=== PATIENT | male | born 1975 | race Two or more races ===

== ENCOUNTER 2018-12-25 16:01 | Emergency (ER) | payer OTHER ==
[~2018-12-25] VITALS: Ht 170.2 cm; Wt 93.4 kg
[2018-12-25 16:28] VITALS: BP 143/78
[2018-12-25] MEDS: KETOROLAC TROMETH 60MG/2ML VIAL IM ONE (16:45)
== END 2018-12-25 17:33 | disposition home or self-care (01) ==
LOC: ER 16:01
DX: G89.29 Other chronic pain (principal); M54.5 Low back pain
CPT/HCPCS: 96372; 99283; J1885

== ENCOUNTER 2019-08-21 08:22 | Emergency (ER) | payer OTHER ==
[~2019-08-21] VITALS: Ht 170.2 cm; Wt 95.3 kg
[2019-08-21 08:30] VITALS: BP 176/98
[2019-08-21] MEDS ORDERED: KETOROLAC TROMETH 60MG/2ML VIAL IM ONE (10:00)
== END 2019-08-21 10:23 | disposition home or self-care (01) ==
LOC: ER 08:25
DX: G89.29 Other chronic pain (principal); M54.5 Low back pain
CPT/HCPCS: 96372; 99283; J1885

== ENCOUNTER 2019-10-06 11:00 | Emergency (ER) | payer OTHER ==
[~2019-10-06] VITALS: Ht 170.2 cm; Wt 97.5 kg
[2019-10-06 12:39] VITALS: BP 153/92
[2019-10-06] MEDS ORDERED: ACETAMINOPHEN/CODEINE#3 (300/30mg) TAB PO ONE (13:45)
== END 2019-10-06 14:25 | disposition home or self-care (01) ==
LOC: ER 11:00
DX: M54.5 Low back pain (principal); R51 Headache
CPT/HCPCS: 72070; 72100

== ENCOUNTER 2020-05-28 11:01 | Emergency (ER) | payer OTHER ==
[~2020-05-28] VITALS: Ht 170.2 cm; Wt 99.8 kg
[2020-05-28 11:33] VITALS: BP 140/86
[2020-05-28] MEDS ORDERED: KETOROLAC TROMETH 60MG/2ML VIAL IM ONE (12:30)
== END 2020-05-28 13:07 | disposition home or self-care (01) ==
LOC: ER 11:01
DX: M54.5 Low back pain (principal); G89.29 Other chronic pain
CPT/HCPCS: 96372; 99283; J1885

== ENCOUNTER 2021-03-17 23:12 | Emergency (ER) | payer OTHER ==
[~2021-03-17] VITALS: Ht 170.2 cm; Wt 90.7 kg
[2021-03-18] MEDS ORDERED: KETOROLAC TROMETH 60MG/2ML VIAL IM ONE (01:00)
[2021-03-18] MEDS ORDERED: METHOCARBAMOL 500 MG TAB PO ONE (01:15)
[2021-03-18] MEDS ORDERED: ALPRAZolam 0.25 MG TAB PO ONE (01:15)
[2021-03-18 03:40] VITALS: BP 177/98
== END 2021-03-18 02:37 | disposition home or self-care (01) ==
LOC: ER 23:12
DX: M54.5 Low back pain (principal); G89.29 Other chronic pain; M79.10 Myalgia, unspecified site; M54.16 Radiculopathy, lumbar region; E66.9 Obesity, unspecified; Z68.31 Body mass index [BMI] 31.0-31.9, adult
CPT/HCPCS: 96372; 99283; J1885

== ENCOUNTER 2021-12-04 21:50 | Emergency (ER) | payer OTHER ==
[~2021-12-04] VITALS: Ht 170.2 cm; Wt 97.5 kg
[2021-12-04 21:53] VITALS: BP 158/87
[2021-12-04] MEDS ORDERED: KETOROLAC TROMETH 30 MG/ML 1ML VIAL IM ONE (22:15)
[2021-12-05] MEDS ORDERED: HYDROcodone-ACET 5/325MG TAB PO ONE (02:00)
== END 2021-12-05 02:01 | disposition home or self-care (01) ==
LOC: ER 21:53
DX: G89.29 Other chronic pain (principal); M54.50 Low back pain, unspecified
CPT/HCPCS: 72100; 96372; 99283; J1885

== ENCOUNTER 2022-12-01 19:49 | Inpatient (IN) | payer MEDICAID ==
[~2022-12-01] VITALS: Ht 170.2 cm; Wt 120.0 kg
[2022-12-01 20:52] LABS: Basophils # (auto) 0.1 10 ^3/uL (0-0.2); Basophils % (auto) 0.5 % (0.0-2.0); Eosinophils # (auto) 0.1 10 ^3/uL (0-0.8); Hematocrit 46.1 % (41.0-53.0); Hemoglobin 15.6 g/dL (13.5-17.5); Lymphocytes % (auto) 37.8 % (10.0-50.0); Mean Corpuscular Hemoglobin 29.8 pg (28.0-32.0); Mean Corpuscular Hgb Conc. 33.8 g/dL (32.0-36.0); Mean Corpuscular Volume 88.2 fL (80.0-100.0); Monocytes # (auto) 0.9 10 ^3/uL (0-1.3); Monocytes % (auto) 8.5 % (0.0-12.0); Neutrophils # (auto) 5.5 10 ^3/uL (1.6-8.6); Neutrophils % (auto) 52.2 % (37.0-80.0); Red Blood Cells 5.22 10^6/uL (4.5-5.90); White Blood Cell 10.6 10^3/uL (4.4-10.8)
[2022-12-01 21:20] LABS: Albumin 3.8 g/dL (3.4-5.0); Calcium 8.8 mg/dL (8.5-10.1); Potassium 3.6 mmol/L (3.5-5.1)
[2022-12-01 21:23] LABS: BUN/Creatinine Ratio 18.6; Bilirubin, Total 0.3 mg/dL (0.2-1.0); Total Protein 7.7 g/dL (6.4-8.2)
[2022-12-01] MEDS ORDERED: cefTRIAXone 1GM/50ML D5W 50 ML IV ONE (22:30)
[2022-12-01] MEDS ORDERED: LISINOPRIL 10 MG TAB PO ONE (22:45)
[2022-12-01] MEDS ORDERED: DEXTROSE (50%) 50ML SYRG IV PRN (23:15)
[2022-12-01] MEDS: SODIUM CHLORIDE 0.9% 1,000 ML IV SCH (23:15)
[2022-12-01] MEDS ORDERED: hydrALAZINE HCL 20 MG/ML VL IV PRN (23:15)
[2022-12-01] MEDS ORDERED: HYDROcodone-ACET 5/325MG TAB PO PRN (23:15)
[2022-12-01] MEDS ORDERED: DOCUSATE SOD 100 MG CAP PO PRN (23:15)
[2022-12-01] MEDS ORDERED: ONDANSETRON HCL 4 MG/2 ML VIAL IV PRN (23:15)
[2022-12-01] MEDS ORDERED: ACETAMINOPHEN 325 MG TAB PO PRN (23:15)
[2022-12-02] MEDS ORDERED: MORPHINE SULFATE INJ 2 MG/ml SYRG IV PRN (01:30)
[2022-12-02] MEDS ORDERED: NITROGLYCERIN 0.4 MG SL TAB SL PRN (01:30)
[2022-12-02] MEDS: SODIUM CHLORIDE 0.9% 1,000 ML IV SCH ×3 (04:03→22:00)
[2022-12-02 04:53] LABS: Basophils # (auto) 0 10 ^3/uL (0-0.2); Basophils % (auto) 0.4 % (0.0-2.0); Eosinophils # (auto) 0.1 10 ^3/uL (0-0.8); Eosinophils % (auto) 1.3 % (0.0-7.0); Hematocrit 41.8 % (41.0-53.0); Hemoglobin 14.4 g/dL (13.5-17.5); Lymphocytes # (auto) 3.6 10 ^3/uL (0.4-5.4); Lymphocytes % (auto) 34.9 % (10.0-50.0); Mean Corpuscular Hemoglobin 30.3 pg (28.0-32.0); Mean Corpuscular Hgb Conc. 34.5 g/dL (32.0-36.0); Mean Corpuscular Volume 87.7 fL (80.0-100.0); Monocytes # (auto) 0.8 10 ^3/uL (0-1.3); Monocytes % (auto) 8.2 % (0.0-12.0); Neutrophils # (auto) 5.7 10 ^3/uL (1.6-8.6); Neutrophils % (auto) 55.2 % (37.0-80.0); Nucleated Red Blood Cells % 0.1 %; Red Blood Cells 4.77 10^6/uL (4.5-5.90); Red Cell Distribution Width 13.1 % (11.8-14.3); White Blood Cell 10.3 10^3/uL (4.4-10.8)
[2022-12-02 05:35] LABS: Albumin 3.4 g/dL (3.4-5.0); BUN/Creatinine Ratio 16.7; Calcium 8.6 mg/dL (8.5-10.1); Potassium 3.7 mmol/L (3.5-5.1)
[2022-12-02 06:08] LABS: Bilirubin, Total 0.2 mg/dL (0.2-1.0)
[2022-12-02] MEDS ORDERED: VANCOMYCIN PER PHARMACY 0 MG IV SCH (06:15)
[2022-12-02] MEDS ORDERED: VANCOMYCIN 1GM/250ML 250 ML IV ONE (06:30)
[2022-12-02] MEDS: ACCU-CHEK COMFORT CURVE STRIP VI SCH ×4 (07:05→22:32)
[2022-12-02] MEDS: InsuLIN REG 1unit/0.01ml Soln (100units/ml) SC SCH ×4 (07:12→22:38)
[2022-12-02] MEDS: ZINC SULFATE 220mg CAP or TAB PO SCH (10:54)
[2022-12-02] MEDS: amLODIPine BESYLATE 5 MG TAB PO SCH (10:55)
[2022-12-02] MEDS: cefTRIAXone 1GM/50ML D5W 50 ML IV SCH ×2 (10:55→11:31)
[2022-12-02] MEDS: ASCORBIC ACID 500 MG TAB PO SCH ×2 (10:56→22:32)
[2022-12-02] MEDS: ENOXAPARIN SOD 40 MG/0.4 ML SYRINGE SC SCH (10:57)
[2022-12-02] MEDS: INSULIN LANTUS (GLARGINE) 1 /0.01ml (100units/ml) SC SCH (12:03)
[2022-12-02 14:14] LABS: INR 0.97 (0.9-1.15)
[2022-12-02] MEDS: VANCOMYCIN 1GM/250ML 250 ML IV SCH ×2 (15:43→22:49)
[2022-12-02 21:53] VITALS: BP 129/68
[2022-12-02 22:00] VITALS: BP_SYST 129; BP_SYST 132; BP_DIAS 68; BP_DIAS 81
[2022-12-03 05:00] VITALS: BP 95/55
[2022-12-03] MEDS: ACCU-CHEK COMFORT CURVE STRIP VI SCH ×4 (06:06→22:10)
[2022-12-03 06:23] LABS: Basophils # (auto) 0 10 ^3/uL (0-0.2); Basophils % (auto) 0.3 % (0.0-2.0); Eosinophils # (auto) 0.2 10 ^3/uL (0-0.8); Eosinophils % (auto) 1.5 % (0.0-7.0); Hematocrit 42.1 % (41.0-53.0); Hemoglobin 14.2 g/dL (13.5-17.5); Lymphocytes # (auto) 3.9 10 ^3/uL (0.4-5.4); Mean Corpuscular Hemoglobin 29.7 pg (28.0-32.0); Mean Corpuscular Hgb Conc. 33.7 g/dL (32.0-36.0); Mean Corpuscular Volume 88.2 fL (80.0-100.0); Monocytes % (auto) 9.5 % (0.0-12.0); Neutrophils # (auto) 5.2 10 ^3/uL (1.6-8.6); Neutrophils % (auto) 50.7 % (37.0-80.0); Nucleated Red Blood Cells % 0.2 %; Red Blood Cells 4.77 10^6/uL (4.5-5.90); Red Cell Distribution Width 13.3 % (11.8-14.3); White Blood Cell 10.3 10^3/uL (4.4-10.8)
[2022-12-03] MEDS: InsuLIN REG 1unit/0.01ml Soln (100units/ml) SC SCH ×4 (06:25→22:19)
[2022-12-03 06:41] LABS: Potassium 4.5 mmol/L (3.5-5.1)
[2022-12-03 06:56] LABS: Albumin 3.1 g/dL (3.4-5.0); Bilirubin, Total 0.4 mg/dL (0.2-1.0); Calcium 8.3 mg/dL (8.5-10.1); Total Protein 6.2 g/dL (6.4-8.2)
[2022-12-03] MEDS: VANCOMYCIN 1GM/250ML 250 ML IV SCH ×3 (07:50→22:31)
[2022-12-03 08:00] VITALS: BP 100/64
[2022-12-03] MEDS: SODIUM CHLORIDE 0.9% 1,000 ML IV SCH ×2 (08:00→17:28)
[2022-12-03] MEDS: ZINC SULFATE 220mg CAP or TAB PO SCH (10:39)
[2022-12-03] MEDS: ASCORBIC ACID 500 MG TAB PO SCH ×2 (10:39→22:07)
[2022-12-03] MEDS: ENOXAPARIN SOD 40 MG/0.4 ML SYRINGE SC SCH (10:40)
[2022-12-03] MEDS: amLODIPine BESYLATE 5 MG TAB PO SCH (10:42)
[2022-12-03] MEDS: INSULIN LANTUS (GLARGINE) 1 /0.01ml (100units/ml) SC SCH (10:51)
[2022-12-03] MEDS ORDERED: cefTRIAXone 1GM/50ML D5W 50 ML IV ONE (12:00)
[2022-12-03 12:05] VITALS: BP 119/72
[2022-12-03 16:00] VITALS: BP 113/64
[2022-12-03 20:05] VITALS: BP 115/69
[2022-12-03 22:00] VITALS: BP 115/69
[2022-12-03] MEDS: DAKINS QUARTER STR 0.125% (NaHypochlorite) 473 ML TOPICAL SOL TOP SCH (22:09)
[2022-12-04] MEDS: SODIUM CHLORIDE 0.9% 1,000 ML IV SCH (04:00)
[2022-12-04 05:00] VITALS: BP 119/72
[2022-12-04] MEDS: ACCU-CHEK COMFORT CURVE STRIP VI SCH ×2 (06:26→12:15)
[2022-12-04] MEDS: InsuLIN REG 1unit/0.01ml Soln (100units/ml) SC SCH ×2 (06:27→12:16)
[2022-12-04] MEDS: VANCOMYCIN 1GM/250ML 250 ML IV SCH ×2 (06:28→15:00)
[2022-12-04 06:48] LABS: Urine Bacteria NONE SEEN /hpf (None Seen); Urine Blood Negative /uL (Negative); Urine Specific Gravity 1.013 (1.001-1.035); Urine WBC 1 /hpf (0 - 3)
[2022-12-04 08:53] VITALS: BP 104/66
[2022-12-04] MEDS: cefTRIAXone 1GM/50ML D5W 50 ML IV SCH (09:29)
[2022-12-04] MEDS: ENOXAPARIN SOD 40 MG/0.4 ML SYRINGE SC SCH (09:29)
[2022-12-04] MEDS: ASCORBIC ACID 500 MG TAB PO SCH (09:33)
[2022-12-04] MEDS: amLODIPine BESYLATE 5 MG TAB PO SCH (09:33)
[2022-12-04] MEDS: ZINC SULFATE 220mg CAP or TAB PO SCH (09:36)
[2022-12-04] MEDS: DAKINS QUARTER STR 0.125% (NaHypochlorite) 473 ML TOPICAL SOL TOP SCH (09:36)
[2022-12-04] MEDS: INSULIN LANTUS (GLARGINE) 1 /0.01ml (100units/ml) SC SCH (09:41)
[2022-12-04] MEDS ORDERED: metFORMIN HYDROCHLORIDE 500 MG TAB PO ONE (10:00)
[2022-12-04] MEDS ORDERED: LISI20TA28 PO (10:06)
[2022-12-04] MEDS ORDERED: METF-370 PO (10:06)
[2022-12-04] MEDS ORDERED: BLOO1KIT60 XX (10:08)
[2022-12-04] MEDS ORDERED: CLIN150C PO (10:11)
[2022-12-04 13:00] VITALS: BP 125/74
[2022-12-04 13:24] VITALS: BP 119/79
[2022-12-04 16:38] VITALS: BP 140/77
[2022-12-04] MEDS ORDERED: metFORMIN HYDROCHLORIDE 500 MG TAB PO SCH (18:00)
== END 2022-12-04 16:00 | disposition home or self-care (01) | DRG 380 ==
LOC: ER 19:49 → OVERFLOW 12-02 01:19 → WEST WING 12-02 21:00
PROVIDERS: ADMIT Nurse Practitioner Family; ATTEND Internal Medicine Geriatric Medicine
DX: E11.621 Type 2 diabetes mellitus with foot ulcer (principal); L97.429 Non-pressure chronic ulcer of left heel and midfoot with unspecified severity; E87.1 Hypo-osmolality and hyponatremia; M60.9 Myositis, unspecified; L03.116 Cellulitis of left lower limb; I10 Essential (primary) hypertension; E66.9 Obesity, unspecified; R31.9 Hematuria, unspecified; L91.0 Hypertrophic scar; Z20.822 Contact with and (suspected) exposure to COVID-19; Z79.84 Long term (current) use of oral hypoglycemic drugs; Z83.3 Family history of diabetes mellitus; Z68.41 Body mass index [BMI] 40.0-44.9, adult
CPT/HCPCS: 36415; 71045; 73700; 73718; 80053; 80202; 81001; 82962; 83036; 85025; 85610; 85652; 87077; 87186; 87205; 87426; 96365; G0378; J0696; J1815

== ENCOUNTER 2024-04-26 22:38 | Inpatient (IN) | payer MEDICAID ==
[~2024-04-26] VITALS: Ht 167.6 cm; Wt 77.3 kg
[~2024-04-26 22:38] MED LIST: BLOO1KIT60 XX; CLIN150C PO; LISI20TA56 PO; METF-370 PO
[2024-04-27 04:36] VITALS: PULSE 83; RESP 22; O2SAT 99
[2024-04-27] MEDS: HYDROmorphone HCL 2 MG/ML VL/or syr IV ONE ×2 (04:47→10:23)
[2024-04-27] MEDS: ONDANSETRON HCL 4 MG/2 ML VIAL IV ONE (04:48)
[2024-04-27] MEDS: VANCOMYCIN 1GM/200ML 200 ML IV ONE (06:45)
[2024-04-27] MEDS: PIPERACILLIN-TAZOB 3.375GM 100 ML IV ONE ×2 (06:45→10:30)
[2024-04-27] MEDS: SODIUM CHLORIDE 0.9% 1,000 ML IV ONE (06:45)
[2024-04-27 06:53] LABS: Alanine Aminotransferase 10 U/L (7-40); Albumin 4.1 g/dL (3.2-4.8); Alkaline Phosphatase 87 U/L (46-116); Anion Gap 9 (5-15); Aspartate Aminotransferase 9 U/L (13-40); BUN/Creatinine Ratio 7.1 (10.0-20.0); Bilirubin, Total 0.4 mg/dL (0.2-1.0); Blood Urea Nitrogen 7 mg/dL (9-23); Calcium 12.5 mg/dL (8.7-10.4); Carbon Dioxide 23 mmol/L (20-30); Chloride 104 mmol/L (98-107); Glucose 174 mg/dL (74-106); Potassium 3.4 mmol/L (3.5-5.1); Sodium 136 mmol/L (136-145)
[2024-04-27 06:55] LABS: Basophils % (auto) 0.3 % (0.0-2.0); Eosinophils # (auto) 0.2 10 ^3/uL (0-0.8); Lymphocytes # (auto) 2.8 10 ^3/uL (0.4-5.4)
[2024-04-27 06:58] LABS: Basophils # (auto) 0.1 10 ^3/uL (0-0.2); Eosinophils % (auto) 1.1 % (0.0-7.0); Hematocrit 26.7 % (41.0-53.0); Hemoglobin 8.8 g/dL (13.5-17.5); Lymphocytes % (auto) 14.4 % (10.0-50.0); Mean Corpuscular Hemoglobin 25.1 pg (28.0-32.0); Mean Corpuscular Hgb Conc. 32.9 g/dL (32.0-36.0); Mean Corpuscular Volume 76.2 fL (80.0-100.0); Monocytes # (auto) 1.4 10 ^3/uL (0-1.3); Monocytes % (auto) 7.4 % (0.0-12.0); Neutrophils # (auto) 14.6 10 ^3/uL (1.6-8.6); Neutrophils % (auto) 76.8 % (37.0-80.0); Red Blood Cells 3.51 10^6/uL (4.5-5.90); Red Cell Distribution Width 16.5 % (11.8-14.3); White Blood Cell 19.1 10^3/uL (4.4-10.8)
[2024-04-27] MEDS: MORPHINE SULFATE 4 MG/ML SYR/VIAL IV ONE (07:39)
[2024-04-27 08:00] VITALS: PULSE 83; RESP 22; O2SAT 98
[2024-04-27] MEDS ORDERED: DEXTROSE (50%) 50ML SYRG IV PRN (10:30)
[2024-04-27] MEDS ORDERED: NITROGLYCERIN 0.4 MG SL TAB SL PRN (10:30)
[2024-04-27] MEDS ORDERED: ONDANSETRON HCL 4 MG/2 ML VIAL IV PRN (10:30)
[2024-04-27] MEDS: ACCU-CHEK COMFORT CURVE STRIP VI SCH (11:30)
[2024-04-27] MEDS: InsuLIN REG 1unit/0.01ml Soln (100units/ml) SC SCH ×2 (14:31→23:07)
[2024-04-27] MEDS: SODIUM CHLORIDE 0.9% 1,000 ML IV SCH ×2 (14:31→20:30)
[2024-04-27] MEDS ORDERED: GADOTERATE MEG 10 MMOL/20ml INJ (0.5MMOL/ml) IV ONE (14:36)
[2024-04-27] MEDS: PIPERACILLIN-TAZOB 3.375GM 100 ML IV SCH (14:44)
[2024-04-27] MEDS: MORPHINE SULFATE INJ 2 MG/ml SYRG IV PRN (15:04)
[2024-04-27 17:57] VITALS: BP 159/77; PULSE 87; RESP 16; TEMP 97.6; O2SAT 99
[2024-04-27] MEDS ORDERED: HYDR1TAB97 (18:12)
[2024-04-27] MEDS ORDERED: DOXY100C4 (18:12)
[2024-04-27] MEDS ORDERED: CEFD300C2 (18:12)
[2024-04-27 20:00] VITALS: PULSE 92
[2024-04-27 21:00] VITALS: BP 152/81; PULSE 92; RESP 20; TEMP 99.3; O2SAT 97
[2024-04-28] VITALS (8 sets, daily range): BP systolic 129–159; BP diastolic 65–77; PULSE 76–95; RESP 17–19; TEMP 98–98.5; O2SAT 94–96
[2024-04-28 06:08] LABS: Basophils % (auto) 0.2 % (0.0-2.0); Eosinophils # (auto) 0.2 10 ^3/uL (0-0.8); Eosinophils % (auto) 0.8 % (0.0-7.0)
[2024-04-28 06:10] LABS: Basophils # (auto) 0 10 ^3/uL (0-0.2); Hematocrit 26.6 % (41.0-53.0); Hemoglobin 8.6 g/dL (13.5-17.5); Lymphocytes # (auto) 2.9 10 ^3/uL (0.4-5.4); Lymphocytes % (auto) 13.6 % (10.0-50.0); Mean Corpuscular Hemoglobin 24.3 pg (28.0-32.0); Mean Corpuscular Hgb Conc. 32.5 g/dL (32.0-36.0); Mean Corpuscular Volume 74.7 fL (80.0-100.0); Monocytes # (auto) 1.5 10 ^3/uL (0-1.3); Monocytes % (auto) 7.1 % (0.0-12.0); Neutrophils # (auto) 16.7 10 ^3/uL (1.6-8.6); Neutrophils % (auto) 78.3 % (37.0-80.0); Red Blood Cells 3.56 10^6/uL (4.5-5.90); White Blood Cell 21.3 10^3/uL (4.4-10.8)
[2024-04-28 06:16] LABS: Albumin 3.8 g/dL (3.2-4.8); Alkaline Phosphatase 82 U/L (46-116); Anion Gap 8 (5-15); BUN/Creatinine Ratio 8.2 (10.0-20.0); Blood Urea Nitrogen 8 mg/dL (9-23); Calcium 12.7 mg/dL (8.7-10.4); Carbon Dioxide 25 mmol/L (20-30); Chloride 103 mmol/L (98-107); Glucose 148 mg/dL (74-106); Potassium 3.5 mmol/L (3.5-5.1); Sodium 136 mmol/L (136-145)
[2024-04-28 06:17] LABS: Aspartate Aminotransferase 11 U/L (13-40); Bilirubin, Total 0.6 mg/dL (0.2-1.0)
[2024-04-28 06:24] LABS: Alanine Aminotransferase 9 U/L (7-40)
[2024-04-28] MEDS: ENOXAPARIN SOD 40 MG/0.4 ML SYRINGE SC SCH (08:37)
[2024-04-29] VITALS (8 sets, daily range): BP systolic 104–159; BP diastolic 69–77; PULSE 84–97; RESP 16–20; TEMP 98.4–99.1; O2SAT 92–98
[2024-04-29] MEDS: DOCUSATE SOD 100 MG CAP PO PRN (08:53)
[2024-04-29] MEDS ORDERED: VANCOMYCIN PER PHARMACY 0 MG IV SCH (09:00)
[2024-04-29] MEDS: VANCOMYCIN 1GM/200ML 200 ML IV ONE (11:16)
[2024-04-29] MEDS: HYDROmorphone HCL 2 MG/ML VL/or syr IV PRN (11:17)
[2024-04-29] MEDS: VANCOMYCIN 1GM/200ML 200 ML IV SCH (18:55)
[2024-04-29] MEDS: TEMAZEPAM 15 MG CAP PO PRN (21:32)
[2024-04-30 05:00] VITALS: BP 130/68; PULSE 93; RESP 20; TEMP 98.7; O2SAT 98
[2024-04-30 08:00] VITALS: RESP 20; O2SAT 98
[2024-04-30 09:00] VITALS: BP 148/79; PULSE 93; RESP 18; TEMP 97.5; O2SAT 98
[2024-04-30 10:52] LABS: Basophils # (auto) 0 10 ^3/uL (0-0.2); Basophils % (auto) 0.2 % (0.0-2.0); Eosinophils # (auto) 0.1 10 ^3/uL (0-0.8); Lymphocytes # (auto) 2.8 10 ^3/uL (0.4-5.4); Mean Corpuscular Hemoglobin 24.4 pg (28.0-32.0); Neutrophils # (auto) 16.3 10 ^3/uL (1.6-8.6); Neutrophils % (auto) 77.4 % (37.0-80.0); White Blood Cell 21.1 10^3/uL (4.4-10.8)
[2024-04-30 10:54] LABS: Eosinophils % (auto) 0.7 % (0.0-7.0); Lymphocytes % (auto) 13.2 % (10.0-50.0); Mean Corpuscular Hgb Conc. 32.1 g/dL (32.0-36.0); Monocytes # (auto) 1.8 10 ^3/uL (0-1.3); Monocytes % (auto) 8.5 % (0.0-12.0); Red Blood Cells 3.68 10^6/uL (4.5-5.90); Red Cell Distribution Width 16.5 % (11.8-14.3)
[2024-04-30 11:20] LABS: Alanine Aminotransferase 12 U/L (7-40); Albumin 4.2 g/dL (3.2-4.8); Alkaline Phosphatase 90 U/L (46-116); Anion Gap 10 (5-15); Aspartate Aminotransferase 17 U/L (13-40); BUN/Creatinine Ratio 11.9 (10.0-20.0); Bilirubin, Total 0.5 mg/dL (0.2-1.0); Blood Urea Nitrogen 13 mg/dL (9-23); Carbon Dioxide 23 mmol/L (20-30); Chloride 101 mmol/L (98-107); Glucose 132 mg/dL (74-106); Potassium 3.8 mmol/L (3.5-5.1); Sodium 134 mmol/L (136-145); Total Protein 7.2 g/dL (5.7-8.2)
[2024-04-30 11:25] LABS: Calcium 13.4 mg/dL (8.7-10.4)
[2024-04-30 13:00] VITALS: BP 121/74; PULSE 92; RESP 16; TEMP 98.2; O2SAT 97
[2024-04-30 17:00] VITALS: BP 127/74; PULSE 88; RESP 18; TEMP 98; O2SAT 94
[2024-04-30] MEDS: VANCOMYCIN 1GM/200ML 200 ML IV SCH (19:02)
[2024-04-30 21:00] VITALS: BP 127/63; PULSE 90; RESP 17; TEMP 99.1; O2SAT 95
[2024-05-01] VITALS (7 sets, daily range): BP systolic 97–157; BP diastolic 50–77; PULSE 69–96; RESP 16–21; TEMP 98–100.1; O2SAT 94–98
[2024-05-01] MEDS: MORPHINE SULFATE INJ 2 MG/ml SYRG IV PRN (11:23)
[2024-05-01] MEDS: HYDROcodone-ACET 10/325MG TAB PO PRN (20:43)
[2024-05-02 01:00] VITALS: BP 146/74; PULSE 81; RESP 18; TEMP 97.9; O2SAT 97
[2024-05-02 04:40] LABS: COVID19 ANTIGEN SOFIA FIA NEGATIVE (NEGATIVE)
[2024-05-02 04:57] VITALS: BP 156/73; PULSE 87; RESP 19; TEMP 98; O2SAT 96
[2024-05-02 07:47] VITALS: BP 143/63; PULSE 88; RESP 20; TEMP 98.4; O2SAT 96
[2024-05-02 09:26] LABS: Basophils # (auto) 0.1 10 ^3/uL (0-0.2); Basophils % (auto) 0.3 % (0.0-2.0); Hemoglobin 8.2 g/dL (13.5-17.5); Lymphocytes # (auto) 2.5 10 ^3/uL (0.4-5.4); Neutrophils # (auto) 15.1 10 ^3/uL (1.6-8.6); White Blood Cell 19.4 10^3/uL (4.4-10.8)
[2024-05-02 09:27] LABS: Eosinophils # (auto) 0.3 10 ^3/uL (0-0.8); Eosinophils % (auto) 1.4 % (0.0-7.0); Lymphocytes % (auto) 12.8 % (10.0-50.0); Mean Corpuscular Hemoglobin 24.6 pg (28.0-32.0); Mean Corpuscular Hgb Conc. 32.7 g/dL (32.0-36.0); Mean Corpuscular Volume 75.4 fL (80.0-100.0); Monocytes # (auto) 1.4 10 ^3/uL (0-1.3); Monocytes % (auto) 7.4 % (0.0-12.0); Neutrophils % (auto) 78.1 % (37.0-80.0); Red Blood Cells 3.32 10^6/uL (4.5-5.90); Red Cell Distribution Width 16.8 % (11.8-14.3)
[2024-05-02 09:35] LABS: Alanine Aminotransferase 12 U/L (7-40); Albumin 3.9 g/dL (3.2-4.8); Alkaline Phosphatase 93 U/L (46-116); Anion Gap 9 (5-15); Aspartate Aminotransferase 13 U/L (13-40); BUN/Creatinine Ratio 13.6 (10.0-20.0); Bilirubin, Total 0.3 mg/dL (0.2-1.0); Blood Urea Nitrogen 12 mg/dL (9-23); Carbon Dioxide 22 mmol/L (20-30); Chloride 103 mmol/L (98-107); Glucose 127 mg/dL (74-106); Potassium 3.4 mmol/L (3.5-5.1); Sodium 134 mmol/L (136-145)
[2024-05-02 09:36] LABS: Total Protein 6.8 g/dL (5.7-8.2)
[2024-05-02 09:52] LABS: Calcium 13.2 mg/dL (8.7-10.4)
[2024-05-02 12:31] VITALS: BP 143/68; PULSE 81; RESP 16; TEMP 98.5; O2SAT 96
[2024-05-02 16:33] VITALS: BP 143/80; PULSE 64; RESP 20; TEMP 98.7; O2SAT 95
[2024-05-02 21:00] VITALS: BP 132/73; PULSE 89; RESP 18; TEMP 98; O2SAT 96
[2024-05-02] MEDS: VANCOMYCIN 1GM/200ML 200 ML IV SCH (21:56)
== END 2024-05-02 22:34 | disposition short-term general hospital (02) | DRG 720 ==
LOC: EDBD 22:38 → ER 22:38 → OVERFLOW 04-27 10:25 → EAST 04-27 15:20
PROVIDERS: ADMIT Nurse Practitioner Family; ATTEND Family Medicine
DX: A41.9 Sepsis, unspecified organism (principal); M86.152 Other acute osteomyelitis, left femur; D64.9 Anemia, unspecified; E11.65 Type 2 diabetes mellitus with hyperglycemia; D75.839 Thrombocytosis, unspecified; L03.116 Cellulitis of left lower limb; Z20.822 Contact with and (suspected) exposure to COVID-19; E83.52 Hypercalcemia; E87.6 Hypokalemia; Z83.3 Family history of diabetes mellitus; Z89.512 Acquired absence of left leg below knee; Z79.4 Long term (current) use of insulin; Z79.899 Other long term (current) drug therapy; Z79.84 Long term (current) use of oral hypoglycemic drugs
CPT/HCPCS: 36415; 73700; 73722; 80053; 80202; 82565; 82962; 85025; 87040; 87426; 96365; 96366; G0378; J1815; J2405; J2543

== ENCOUNTER 2024-05-08 16:54 | Inpatient (IN) | payer MEDICAID ==
[~2024-05-08] VITALS: Ht 165.1 cm; Wt 77.6 kg
[~2024-05-08 16:54] MED LIST changes: -BLOO1KIT60 XX; +CEFD300C2; -CLIN150C PO; +DOXY100C4; +HYDR1TAB97; -LISI20TA56 PO
[2024-05-09] VITALS (9 sets, daily range): BP systolic 112–162; BP diastolic 40–79; PULSE 74–87; RESP 16–18; TEMP 97.4–98.1; O2SAT 97–99
[2024-05-09 02:07] LABS: Basophils # (auto) 0.1 10 ^3/uL (0-0.2); Eosinophils # (auto) 0.3 10 ^3/uL (0-0.8); Lymphocytes # (auto) 2.5 10 ^3/uL (0.4-5.4); Red Cell Distribution Width 18.7 % (11.8-14.3)
[2024-05-09 02:09] LABS: Basophils % (auto) 0.3 % (0.0-2.0); Eosinophils % (auto) 1.9 % (0.0-7.0); Hematocrit 24.6 % (41.0-53.0); Hemoglobin 7.8 g/dL (13.5-17.5); Lymphocytes % (auto) 15.4 % (10.0-50.0); Mean Corpuscular Hemoglobin 23.7 pg (28.0-32.0); Mean Corpuscular Hgb Conc. 31.9 g/dL (32.0-36.0); Mean Corpuscular Volume 74.3 fL (80.0-100.0); Monocytes # (auto) 1.2 10 ^3/uL (0-1.3); Monocytes % (auto) 7.4 % (0.0-12.0); Platelet Count (auto) 684 10^3/uL (140-450); Red Blood Cells 3.31 10^6/uL (4.5-5.90)
[2024-05-09 02:21] LABS: Alanine Aminotransferase 15 U/L (7-40); Albumin 4.1 g/dL (3.2-4.8); Alkaline Phosphatase 70 U/L (46-116); Anion Gap 8 (5-15); Aspartate Aminotransferase 18 U/L (13-40); BUN/Creatinine Ratio 6.7 (10.0-20.0); Bilirubin, Total 0.2 mg/dL (0.2-1.0); Blood Urea Nitrogen 6 mg/dL (9-23); Calcium 9.4 mg/dL (8.7-10.4); Carbon Dioxide 22 mmol/L (20-30); Chloride 105 mmol/L (98-107); Glucose 139 mg/dL (74-106); Sodium 135 mmol/L (136-145); Total Protein 7.1 g/dL (5.7-8.2)
[2024-05-09] MEDS: HYDROcodone-ACET 5/325MG TAB PO PRN (05:57)
[2024-05-09] MEDS ORDERED: hydrALAZINE HCL 20 MG/ML VL IV PRN (06:45)
[2024-05-09] MEDS ORDERED: NITROGLYCERIN 0.4 MG SL TAB SL PRN (06:45)
[2024-05-09] MEDS ORDERED: ONDANSETRON HCL 4 MG/2 ML VIAL IV PRN (06:45)
[2024-05-09] MEDS: SODIUM CHLORIDE 0.9% 1,000 ML IV SCH (06:45)
[2024-05-09] MEDS ORDERED: DOCUSATE SOD 100 MG CAP PO PRN (06:45)
[2024-05-09] MEDS ORDERED: VANCOMYCIN PER PHARMACY 0 MG IV SCH (06:45)
[2024-05-09] MEDS ORDERED: ACETAMINOPHEN 325 MG TAB PO PRN (06:45)
[2024-05-09] MEDS ORDERED: MORPHINE SULFATE INJ 2 MG/ml SYRG IV PRN (06:45)
[2024-05-09] MEDS ORDERED: DEXTROSE (50%) 50ML SYRG IV PRN (06:45)
[2024-05-09] MEDS: cefTRIAXone 1GM/50ML D5W 50 ML IV SCH (07:00)
[2024-05-09] MEDS: MORPHINE SULFATE INJ 2 MG/ml SYRG IV PRN (07:12)
[2024-05-09] MEDS: ACCU-CHEK COMFORT CURVE STRIP VI SCH (07:15)
[2024-05-09] MEDS: InsuLIN REG 1unit/0.01ml Soln (100units/ml) SC SCH (07:17)
[2024-05-09] MEDS: MULTIPLE VITAMIN TAB PO SCH (09:14)
[2024-05-09] MEDS: ZINC SULFATE 220mg CAP or TAB PO SCH (09:14)
[2024-05-09] MEDS: ASCORBIC ACID 500 MG TAB PO SCH (09:15)
[2024-05-09] MEDS: ENOXAPARIN SOD 40 MG/0.4 ML SYRINGE SC SCH (09:16)
[2024-05-09] MEDS: BENAZEPRIL HCL 10 MG TAB PO SCH (09:16)
[2024-05-09] MEDS: VANCOMYCIN 1GM/200ML 200 ML IV ONE ×2 (10:10→11:50)
[2024-05-09 18:45] LABS: Urine Bacteria None Seen /hpf (None Seen)
[2024-05-09 19:01] LABS: Urine Blood Negative /uL (Negative); Urine Clarity Clear (Clear); Urine Color Colorless (Yellow); Urine Protein, UAD Negative (Negative); Urine Specific Gravity 1.013 (1.001-1.035); Urine Urobilinogen Normal (Negative); Urine WBC 1 /hpf (0 - 3); Urine pH 6.5 (5.0-9.0)
[2024-05-09 19:34] LABS: Basophils # (auto) 0.1 10 ^3/uL (0-0.2); Basophils % (auto) 0.3 % (0.0-2.0); Eosinophils # (auto) 0.4 10 ^3/uL (0-0.8); Eosinophils % (auto) 2.4 % (0.0-7.0); Hematocrit 25.2 % (41.0-53.0); Hemoglobin 8.3 g/dL (13.5-17.5); Lymphocytes # (auto) 2.7 10 ^3/uL (0.4-5.4); Lymphocytes % (auto) 16.9 % (10.0-50.0); Mean Corpuscular Hemoglobin 24.9 pg (28.0-32.0); Mean Corpuscular Volume 75.4 fL (80.0-100.0); Monocytes # (auto) 1.1 10 ^3/uL (0-1.3); Monocytes % (auto) 7.2 % (0.0-12.0); Neutrophils # (auto) 11.5 10 ^3/uL (1.6-8.6); Neutrophils % (auto) 73.2 % (37.0-80.0); Platelet Count (auto) 693 10^3/uL (140-450); Red Blood Cells 3.34 10^6/uL (4.5-5.90); Red Cell Distribution Width 19.2 % (11.8-14.3); White Blood Cell 15.7 10^3/uL (4.4-10.8)
[2024-05-09] MEDS: VANCOMYCIN 1GM/200ML 200 ML IV SCH (19:55)
[2024-05-09] MEDS ORDERED: InsuLIN REG 1unit/0.01ml Soln (100units/ml) SC SCH (22:00)
[2024-05-09] MEDS ORDERED: ATORVASTATIN 20 MG TAB PO SCH (22:00)
== END 2024-05-09 22:15 | disposition left against medical advice (07) | DRG 344 ==
LOC: EAST 05-09 00:04
PROVIDERS: ADMIT Nurse Practitioner Family; ATTEND Nurse Practitioner Family
DX: E11.69 Type 2 diabetes mellitus with other specified complication (principal); M86.8X5 Other osteomyelitis, thigh; E43 Unspecified severe protein-calorie malnutrition; E11.65 Type 2 diabetes mellitus with hyperglycemia; D64.9 Anemia, unspecified; D72.829 Elevated white blood cell count, unspecified; D75.839 Thrombocytosis, unspecified; E78.00 Pure hypercholesterolemia, unspecified; I10 Essential (primary) hypertension; Z89.612 Acquired absence of left leg above knee; Z68.28 Body mass index [BMI] 28.0-28.9, adult; Z91.199 Patient's noncompliance with other medical treatment and regimen due to unspecified reason
CPT/HCPCS: 36415; 70450; 80053; 80307; 80320; 81001; 82962; 85025; 86850; 86900; 86901; 87040; G0378; J1815